=== PATIENT | female | born 2000 | race Two or more races ===

== ENCOUNTER 2023-02-03 17:42 | Emergency (ER) | payer OTHER ==
[~2023-02-03] VITALS: Ht 152.4 cm; Wt 81.6 kg
[2023-02-03 17:44] VITALS: BP 126/95; TEMP 98.2
[2023-02-03] MEDS ORDERED: KETOROLAC TROMETHAMINE INJ 30 MG/ML VIAL IM ONE (18:00)
[2023-02-03 18:19] LABS: BASOPHILS % (AUTO) 0.4 % (0.0-2.0); EOSINOPHILS # (AUTO) 0.1 K/uL (0.0-0.7); EOSINOPHILS % (AUTO) 1.2 % (0.0-6.0); HEMATOCRIT 43 % (33-45); HEMOGLOBIN 14.3 g/dL (11.5-14.8); LYMPHOCYTES # (AUTO) 1.9 K/uL (0.8-4.8); LYMPHOCYTES % (AUTO) 28.2 % (20.0-44.0); MEAN CORPUSCULAR HEMOGLOBIN 29 PG (26.0-33.0); MEAN CORPUSCULAR HGB CONC 33 g/dl (31.0-36.0); MEAN CORPUSCULAR VOLUME 88 fL (82-100); MONOCYTES # (AUTO) 0.5 K/uL (0.1-1.30); MONOCYTES % (AUTO) 7.7 % (2.0-12.0); NEUTROPHILS # (AUTO) 4.2 K/uL (1.8-8.9); NEUTROPHILS % (AUTO) 62.5 % (43.0-81.0); PLATELET COUNT (AUTO) 348 K/uL (150-450); RED BLOOD CELL COUNT(AUTO) 4.93 MIL/uL (4.0-5.2); WHITE BLOOD COUNT (AUTO) 6.8 K/uL (4.3-11.0)
[2023-02-03] MEDS ORDERED: KETOROLAC TROMETHAMINE INJ 30 MG/ML VIAL ONE (18:21)
[2023-02-03 19:06] LABS: CALCIUM, SERUM 9.4 mg/dL (8.5-10.1); CREATININE 0.6 mg/dL (0.6-1.3)
[2023-02-03 19:13] LABS: ALBUMIN 4.2 g/dL (3.4-5.0); BILIRUBIN,DIRECT 0.1 mg/dL (0.0-0.2); BILIRUBIN,TOTAL 0.5 mg/dL (0.2-1.0); TOTAL PROTEIN, SERUM 8.2 g/dL (6.4-8.2)
[2023-02-03] MEDS ORDERED: FAMO20TA8 PO (19:25)
[2023-02-03] MEDS ORDERED: DIPH-530 PO (19:25)
[2023-02-03] MEDS ORDERED: KETO10TA2 PO (19:25)
[2023-02-03 19:34] VITALS: O2SAT 98
== END 2023-02-03 19:34 | disposition home or self-care (01) ==
LOC: ER 17:44
DX: M25.50 Pain in unspecified joint (principal); L50.9 Urticaria, unspecified
CPT/HCPCS: 99283; 96372; 85025; 80048; 80076; 85652; 36415; 86140; J1885